=== PATIENT | female | born 1980 | race Caucasian/White ===

== ENCOUNTER 2020-07-16 17:28 | Emergency (ER) | payer OTHER ==
[~2020-07-16] VITALS: Ht 165.1 cm; Wt 52.2 kg
[2020-07-16] MEDS ORDERED: FLUOXETINE HCL40 MG PO (17:41)
[2020-07-16] MEDS ORDERED: DESYREL300 MG (17:41)
[2020-07-16] MEDS ORDERED: CARAFATE1 GM/10 ML PO (19:00)
[2020-07-16] MEDS ORDERED: ZOFRAN ODT4 MG PO (19:00)
[2020-07-16 19:11] VITALS: BP 104/69
== END 2020-07-16 19:13 | disposition home or self-care (01) ==
LOC: M.ERS 17:28
DX: S27.818A Other injury of esophagus (thoracic part), initial encounter (principal); Z79.899 Other long term (current) drug therapy; X58.XXXA Exposure to other specified factors, initial encounter; Y93.89 Activity, other specified; Y92.89 Other specified places as the place of occurrence of the external cause; Y99.9 Unspecified external cause status